=== PATIENT | female | born 2000 | race Caucasian/White ===

== ENCOUNTER 2023-06-09 08:03 | Outpatient (OUT) | payer BC, SELFPAY ==
--- NOTE | 2023-06-09 08:13 | XR_ITS ---
The [address] [address] Patient Name: GREG CATALAN MRN: [id number] date: 2000 Sex: F Assigned Patient Location: [facility] Current Patient Location: [facility] Accession/Order Number: [id number] Exam Date: 06/09/2023 08:17 Report Date: 06/09/2023 08:29 At the request of: CHRISTIANO RICO Procedure: XR ankle LT min 3V PROCEDURE: XR ankle LT min 3V COMPARISON: None. HISTORY: Acute Left Ankle Pain M25.572 FINDINGS: BONES:No fracture, acute abnormality, or significant arthropathy. SOFT TISSUES:Negative. No visible soft tissue swelling. EFFUSION:None visible. OTHER: Negative. XR/XR ankle LT min 3V IMPRESSION: No acute radiographic abnormality Electronically authenticated by: GIDEON ARIAS Date: 06/09/2023 08:29
== END 2023-06-09 08:04 | disposition home or self-care (01) ==
LOC: RAD 08:09
PROVIDERS: PCP Family Medicine; Visit Provider Family Medicine
DX: M25.572 Pain in left ankle and joints of left foot (principal)
CPT/HCPCS: 73610